=== PATIENT | female | born 1930 | race Caucasian/White ===

== ENCOUNTER 2017-08-18 17:15 | Inpatient (IN) ==
--- NOTE | 2017-08-18 21:47 | Internal Med History&Physical ---
Assessment and Plan (1) Anemia Status: Chronic Current Visit: Yes Qualifiers: Anemia type: iron deficiency Iron deficiency anemia type: chronic blood loss Qualified Code(s): D50.0 - Iron deficiency anemia secondary to blood loss (chronic) (2) History of anticoagulant therapy Status: Chronic Current Visit: Yes (3) Cardiomyopathy Status: Chronic Current Visit: Yes (4) PAD (peripheral artery disease) Status: Chronic Current Visit: No (5) Paroxysmal a-fib Status: Chronic Current Visit: No History of Present Illness Chief complaint: worsening fatigue and shortness of breath History of present illness: Ms. Singh is a 87 year old female with history of cardiomyopathy, paroxysmal atrial fibrillation, pacemaker placement, atherosclerotic disease to include carotid disease and peripheral arterial disease, COPD, history of pneumonia, iron deficiency anemia, Eliquis therapy, OA, who presented to clinic today fatigued. CBC revealed significant anemia with HH of 7.9 and 25. A few weeks ago, hemoglobin was 10. She had positive heme stools. Concerned about continuing Eliquis for anticoagulation. She is here in clinic today in follow up and found to need blood transfusion, so directly admitted to hospital. Eliquis is being held. Cardiology consulted to evaluate need for future anticoagulation vs aspirin therapy. Home Medications Medication Instructions Recorded Confirmed Type Apixaban [Eliquis] 1 tablet PO BID 06/03/15 04/04/16 History FLUoxetine [PROzac] 20 mg PO DAILY 06/03/15 04/04/16 History Furosemide 40 mg PO DAILY 06/03/15 04/04/16 History Metoprolol Succinate Xl [Toprol Xl] 25 mg PO DAILY 06/03/15 04/04/16 History Pantoprazole Tab [Protonix Tab] 40 mg PO DAILY 06/03/15 04/04/16 History Potassium Chloride 20 meq PO BEDTIME 06/03/15 04/04/16 History Rosuvastatin [Crestor] 20 mg PO BEDTIME 06/03/15 04/04/16 History Cilostazol [Pletal] 50 mg PO BID 04/01/16 04/04/16 History Ferrous Sulfate Tab [Feosol 325 mg PO DAILY 04/01/16 04/04/16 History Original Tab] Folic Acid Tab 1 mg PO DAILY 04/01/16 04/04/16 History Meclizine HCl 25 mg PO TID 04/01/16 04/04/16 History amLODIPine [Norvasc] 5 mg PO DAILY 04/01/16 04/04/16 History Fenofibrate [Tricor] 145 mg PO DAILY 04/04/16 04/04/16 History HYDROcodone/ACETAMIN 7.5-325 1 - 2 tablet PO Q4H PRN #60 tablet 04/04/16 Rx [[place] 7.5-325] Cholecalciferol [Vitamin D3] 5,000 unit PO DAILY PRN #0 tablet 04/16/16 Rx Fenofibrate [Tricor] 145 mg PO DAILY tablet 04/16/16 Rx QUEtiapine [SEROquel] 12.5 mg PO 1800 tablet 04/16/16 Rx Allergies Allergy/AdvReac Type Severity Reaction Status Date / Time Phenelzine [From [place]] Allergy NUMBNESS Verified 06/03/15 18:29 Medical,Surgical,& Family Hx - Medical History Cardio: History of: Cardiac Dysrhythmia (a fib), Hypertension, Pacemaker ( placed 7 years ago), PVD, Cardiovascular Problems (nonischemic cardiomyopathy EF 40%) Psychological: History of: Depression Neurology: History of: Vertigo HEENT: History of: HEENT Problems (allergic rhinitis/URI) Endocrine: History of: Dyslipidemia, Thyroid Disorder Respiratory: History of: Bronchitis, COPD Musculoskeletal: History of: Musculoskeletal Problems (history of hip fracture left; osteoarthritis) Hematology: History of: Clotting Problems (hx of blood clots in [place] legs) Reproductive: Comment Only: Ovarian Cysts (ovarian mass) - Surgical History Cardiac Surgeries: Sugical HX of: Carotid Endarterectomy HEENT Surgeries: Surgical HX of: Carotid Endarterectomy Abdominal Surgeries: Surgical HX of: Hernia Repair (inguinal hernia) - Family History Family History: Reports;: Family Hypertension (mother) Denies;: Family Anesthesia Reaction, Family Cancer, Family Diabetes, Family Heart Disease, Family Psychiatric Problems, Family Stroke - Social History Smoking Status: Never smoker Frequency of Alcohol Use: None Type of Drug Use: None Marital Status: Lives With:: Alone (has a daily sitter) Functional capacity: wheelchair bound - Constitutional Constitutional: Present: fatigue, malaise, weakness - Cardiovascular Cardiovascular: Present: dyspnea on exertion. Absent: chest pain at rest, chest pain with activity - Respiratory Respiratory: Present: dyspnea on exertion - Gastrointestinal Gastrointestinal: Absent: nausea, vomiting - Musculoskeletal Musculoskeletal: Absent: arthralgias (denies pain at this time) - Psychiatric Psychiatric: Absent: anxiety Exam - Constitutional Vitals: Period Temp Pulse Resp BP Sys/Gayle Pulse Ox Last 24 Hr 97.8 F 107 20 125/53 95 General appearance: no acute distress - Head Head exam: Present: normocephalic - Eye Eye exam: Present: EOMI - Respiratory Respiratory exam: Present: clear to auscultation bilaterally. Absent: rhonchi, wheezes - Cardiovascular Cardiovascular exam: Present: regular rate and rhythm, systolic murmur - GI/Abdominal GI/Abdominal exam: Absent: tenderness, soft - Extremities Exam Extremities exam: Absent: edema - Neurological Exam Neurological exam: Present: alert, oriented X3 - Psychiatric Psychiatric exam: Present: normal mood - Skin Skin exam: Present: warm, dry
[2017-08-18 22:00] LABS: Alanine Aminotransferase 13 U/L (13-56); Albumin 3.1 G/DL (3.4-5.0); Alkaline Phosphatase 49 U/L (45-117); Aspartate Amino Transferase 24 U/L (0-37); Bilirubin,Total < 0.39 MG/DL (0.2-1.0); Blood Urea Nitrogen 19 MG/DL (7-18); Calcium 8.7 MG/DL (8.5-10.1); Glucose 113 MG/DL (74-106); Iron 14 UG/DL (50-170); Magnesium 2.4 MG/DL (1.8-2.4); Osmolality,Calculated 279.5 MOS/KG (273-304); Potassium 3.6 MMOL/L (3.5-5.1); Sodium 139 MMOL/L (136-145)
[2017-08-18] MEDS ORDERED: ONDANSETRON 4 MG/2 ML VIAL IV PRN (22:16)
[2017-08-18] MEDS ORDERED: MAGNESIUM HYDROXIDE SUSP 30 ML UDCUP PO PRN (22:16)
[2017-08-18] MEDS ORDERED: ACETAMINOPHEN 325 MG TABLET PO PRN (22:16)
[2017-08-18] MEDS ORDERED: SODIUM CHLORIDE 0.9% 250 ML IV PRN (22:27)
[2017-08-18] MEDS ORDERED: SKIN HEALING OINT (AQUAPHOR) 50 GM TUBE TOP PRN (22:37)
[2017-08-18] MEDS ORDERED: POLYVINYL ALCOHOL 1.4% OPH SOLN 15 ML BOTTLE BOTH EYES PRN (22:38)
[2017-08-18 22:44] LABS: Basophils # 0.1 10*3/uL (0.0-0.2); Basophils % 0.9 % (0.0-0.8); Eosinophils # 0.2 10*3/uL (0.0-0.87); Hematocrit 22.1 VOL% (35.7-47.0); Hemoglobin 6.9 GM/DL (12.0-16.0); Immature Granulocytes % 0.2 %; Immature Granulocytes Absolute 0.01 #; Lymphocytes # 1.5 10*3/uL (1.4-4.0); Lymphocytes % 26.7 % (21.3-54.2); Mean Corpuscular HGB Conc 31.2 GM/DL (32-36); Mean Corpuscular Hemoglobin 29 PG (27-34); Mean Corpuscular Volume 93.2 FL (87-102); Mean Platelet Volume 11.8 FL (9.6-12.0); Monocytes # 0.7 10*3/uL (0.11-0.8); Neutrophils # 3.2 10*3/uL (1.4-7.4); Neutrophils % 56.2 % (38.7-73.9); Platelet Count 206 T/CUMM (130-400); Red Blood Count 2.37 MC/CUMM (3.8-5.5); Red Cell Distribution Width 13.3 % (9.3-17.3); White Blood Count 5.7 T/CUMM (4-12)
[2017-08-18] MEDS: SODIUM CHLORIDE 0.45% 1,000 ML IV SCH (23:00)
[2017-08-18 23:37] LABS: Ferritin 12.3 ng/ml (8-252)
[2017-08-18] MEDS: METOPROLOL SUCCINATE XL 25 MG TABLET PO SCH (23:50)
[2017-08-19] MEDS: ALBUTEROL/IPRATROPIUM 3 ML NEB RESP TX SCH ×4 (00:56→19:16)
[2017-08-19 06:31] LABS: Apearance,Urine Slightly Hazy (Clear); Bacteria,Urine Occasional /HPF (Few); Bilirubin,Urine Negative (Negative); Blood, Urine Negative (Negative); Glucose,Urine (UA) Negative (Negative); Hyaline Casts,Urine 2 /LPF (0-3); Ketones,Urine Negative (Negative); Mucus,Urine Occasional /LPF (Occasional); Nitrite,Urine Negative (Negative); Protein,Urine Negative; RBC,Urine 2 /HPF (0-4); Squamous Epithelial Cell,Urine Occasional /HPF (0-10); Urine Color Yellow (Yellow); Urine Specific Gravity 1.013 (1.001-1.035); Urine Urobilinogen < 2.0 EU/DL (0.2-1.0); WBC,Urine 1 /HPF (0-6)
--- NOTE | 2017-08-19 06:44 | XRay Report ---
XR chest 2V Indication: Shortness of breath Comparison: 12 September 2016 Findings: The heart and mediastinum are normal in size and configuration. Pacemaker device is unchanged in position. The pulmonary vascularity is normal in caliber. Lung volumes are increased with prominent bronchial markings. No lung infiltrates, effusions, pneumothorax or other abnormality is demonstrated. Impression: Chronic lung changes. No acute process or significant change. PROCEDURE INTERPRETED AT [facility] DEPARTMENT OF RADIOLOGY Final Report Signed by: Dr. Kevin Oleary
--- NOTE | 2017-08-19 07:38 | Order Completion Report ---
See report scanned to EMR
[2017-08-19 08:11] LABS: Basophils # 0.1 10*3/uL (0.0-0.2); Basophils % 1.1 % (0.0-0.8); Eosinophils # 0.2 10*3/uL (0.0-0.87); Eosinophils % 4.4 % (0.00-10.9); Hematocrit 27.7 VOL% (35.7-47.0); Immature Granulocytes % 0.2 %; Immature Granulocytes Absolute 0.01 #; Lymphocytes # 1.8 10*3/uL (1.4-4.0); Lymphocytes % 33.9 % (21.3-54.2); Mean Corpuscular HGB Conc 32.9 GM/DL (32-36); Mean Corpuscular Hemoglobin 29 PG (27-34); Mean Corpuscular Volume 87.1 FL (87-102); Mean Platelet Volume 11.5 FL (9.6-12.0); Monocytes # 0.6 10*3/uL (0.11-0.8); Monocytes % 12.2 % (1.7-12.7); Neutrophils # 2.5 10*3/uL (1.4-7.4); Neutrophils % 48.2 % (38.7-73.9); Platelet Count 168 T/CUMM (130-400); Red Cell Distribution Width 15.1 % (9.3-17.3); White Blood Count 5.3 T/CUMM (4-12)
[2017-08-19 08:21] LABS: Hemoglobin 9.1 GM/DL (12.0-16.0); Red Blood Count 3.18 MC/CUMM (3.8-5.5)
[2017-08-19 08:22] LABS: 25 Hydroxy Vitamin D Total 17.6 NG/ML
--- NOTE | 2017-08-19 08:40 | Cardiology Consult Note ---
<Mariana Linda E - Last Filed: 08/19/17 12:41> Assessment and Plan - Time spent with patient Time spent with patient: Greater than 30 minutes (1) Hypertension Status: Chronic Assessment and plan: SEE PLAN OF CARE LISTED BELOW Current Visit: Yes (2) Dyslipidemia Status: Chronic Assessment and plan: SEE PLAN OF CARE LISTED BELOW Current Visit: Yes (3) Risk for falls Status: Chronic Assessment and plan: SEE PLAN OF CARE LISTED BELOW Current Visit: Yes (4) NICM (nonischemic cardiomyopathy) Status: Chronic Assessment and plan: SEE PLAN OF CARE LISTED BELOW Current Visit: Yes (5) Advanced age Status: Chronic Assessment and plan: SEE PLAN OF CARE LISTED BELOW Current Visit: Yes (6) Atrial fibrillation Status: Chronic Assessment and plan: SEE PLAN OF CARE LISTED BELOW Current Visit: No Qualifiers: Atrial fibrillation type: chronic Qualified Code(s): I48.2 - Chronic atrial fibrillation (7) PAD (peripheral artery disease) Status: Chronic Assessment and plan: SEE PLAN OF CARE LISTED BELOW Current Visit: No (8) Anemia Status: Acute Assessment and plan: SEE PLAN OF CARE LISTED BELOW Current Visit: Yes Qualifiers: Anemia type: iron deficiency Iron deficiency anemia type: chronic blood loss Qualified Code(s): D50.0 - Iron deficiency anemia secondary to blood loss (chronic) (9) History of anticoagulant therapy Status: Chronic Assessment and plan: SEE PLAN OF CARE LISTED BELOW Current Visit: Yes History of Present Illness - Data of Consult Patient: known to practice within the last 3 years Consult date: 08/19/17 Requesting Physician: Cristobal Mei Primary care physician: Cristobal Mei - Consult Narrative Reason for consult: Atrial fibrillation, anemia History of present illness: MECHANICAL FACILITIES TECHNICIAN: DR. STAPLES PCP: DR. CRISTOBAL MEI Ms. Singh, [id number], has risk factors significant for: advanced age, hypertension, dyslipidemia, PVD and sedentary lifestyle. History of nonischemic cardiomyopathy (EF 35%-40%), third-degree AV block now S/P PPM, COPD, chronic atrial fibrillation for which she takes low-dose Eliquis for stroke prevention. Patient presented to Dr. Hanh Mei's office for complaints of progressive fatigue. CBC revealed a significant anemia and she was directly admitted August 18, 2017. Cardiology was consulted as she has a history of paroxysmal atrial fibrillation, currently taking Eliquis. Echocardiogram February 26, 2017: EF 35-40%, mild concentric LVH, small pericardial effusion noted. Denies chest pain, heaviness, tightness. Denies shortness of breath but states over the past several months she has started tiring easily. No lightheadedness , dizziness. Patient denies vomiting of blood or passing blood in her stool. She does acknowledge several months back, there was bright red bleeding on the tissue paper when she wiped but does not recall having black and tarry stools. Patient was transfused last night and this morning hemoglobin hematocrit 9.1 27.7 respectively. Since transfusion, she feels markedly better. This point, we must continue to hold Eliquis given her severe anemia. Of course , this puts her at high risk for stroke however given the severity of her anemia , it is felt best to discontinue use of Eliquis altogether. This was discussed with the patient today. Await results stool for occult blood, anemia profile. No need to repeat echocardiogram at this time as we have an echo from February 2017 (see above). We will continue to follow her telemetry, continuing her beta -césar. Fasting lipid profile in the morning. Will further discuss with Dr. Jaffe and await additional recommendations. IMPRESSION/PLAN: 1. ANEMIA - stool for occult blood, anemia profile. Holding Eliquis. No aspirin. Suspect she will require upper and lower GI evaluation 2. CHRONIC ATRIAL FIBRILLATION - continue beta-césar. She is currently paced with underlying chronic atrial fibrillation 3. HYPERTENSION - continue beta-blockade. We will adjust medications accordingly during hospital stay as we monitor her blood pressure 4. DYSLIPIDEMIA - FLP in a.m. Lipid-lowering agent starting this evening. 5. NICM - EF 35-40% (this has improved from 20%). Continue with current medication treatment. She is not in congestive heart failure 6. ADVANCED AGE - will verify fall prevention protocol is in place 7. PVD - history of right carotid endarterectomy performed by Dr. Natan Ovalle several years ago. Would benefit from an aspirin however given her severe anemia we will hold. 8. S/P PPM - recent interrogation at [facility]. Found to be working appropriately CC: Cristobal Mei, DO - Home Medications and Allergies Home Medications: Home Medications Medication Instructions Recorded Confirmed Type Apixaban [Eliquis] 1 tablet PO BID 06/03/15 08/18/17 History FLUoxetine [PROzac] 20 mg PO DAILY 06/03/15 08/18/17 History Furosemide 40 mg PO DAILY 06/03/15 08/18/17 History Metoprolol Succinate Xl [Toprol Xl] 25 mg PO BEDTIME 06/03/15 08/18/17 History Pantoprazole Tab [Protonix Tab] 40 mg PO DAILY 06/03/15 08/18/17 History Potassium Chloride 20 meq PO QOTHER DAY 06/03/15 08/19/17 History Rosuvastatin [Crestor] 20 mg PO BEDTIME 06/03/15 08/18/17 History Folic Acid Tab 1 mg PO DAILY 04/01/16 08/18/17 History Fenofibrate [Tricor] 145 mg PO DAILY tablet 04/16/16 08/18/17 Rx Allergies/Adverse Reactions: Allergies Allergy/AdvReac Type Severity Reaction Status Date / Time Phenelzine [From Nardil] Allergy NUMBNESS Verified 06/03/15 18:29 Review of systems: REVIEW OF SYSTEMS: See HPI - Constitutional Constitutional: Present: Fatigue. Absent: syncope, anorexia, night sweats - EENT Eyes: Absent: blurry vision, loss of vision, diplopia Ears: Absent: decreased hearing, ear pain, ear discharge - Cardiovascular Cardiovascular: Denies: chest pain with exertion, dyspnea on exertion, edema, palpitations. Absent: chest pain with deep breath, claudication - Respiratory Respiratory: Denies WORLEY, cough. Absent: wheezing, hemoptysis, change in phlegm color - Gastrointestinal Gastrointestinal: Denies: constipation. Absent: abdominal pain, hematemesis, hematochezia, melena, change in bowel habits, nausea - Genitourinary Genitourinary: Absent: difficulty urinating, dysuria, urinary hesitancy, flank pain - Musculoskeletal Musculoskeletal: Present: back pain Absent: joint swelling, muscle cramps, muscle weakness - Neurological Neurological: Present: Poor gait without frequent falls. Absent: dizziness, hemiparesis - Psychiatric Psychiatric: Absent: anxiety, depression, difficulty concentrating - Endocrine Endocrine: Absent: cold intolerance, heat intolerance, polyuria, polyphagia, polydipsia - Hematologic/Lymphatic Hematologic/Lymphatic: Present: easy bruising. Absent: easy bleeding -Integumentary Integumentary: Absent: lesions, rashes, skin breakdown Medical,Surgical,& Family Hx - Medical History Cardio: History of: Cardiac Dysrhythmia (a fib), Hypertension, Pacemaker ( placed 7 years ago), PVD, Cardiovascular Problems (nonischemic cardiomyopathy EF 40%) No history of: CAD Psychological: History of: Depression Neurology: History of: Vertigo HEENT: History of: HEENT Problems (allergic rhinitis/URI) Endocrine: History of: Dyslipidemia, Thyroid Disorder Respiratory: History of: Bronchitis, COPD Musculoskeletal: History of: Musculoskeletal Problems (history of hip fracture left; osteoarthritis) Hematology: History of: Clotting Problems (hx of blood clots in [place] legs) Reproductive: Comment Only: Ovarian Cysts (ovarian mass) - Surgical History Cardiac Surgeries: Sugical HX of: Carotid Endarterectomy HEENT Surgeries: Surgical HX of: Carotid Endarterectomy Abdominal Surgeries: Surgical HX of: Hernia Repair (inguinal hernia) - Family History Family History: Reports;: Family Hypertension (mother) Denies;: Family Anesthesia Reaction, Family Cancer, Family Diabetes, Family Heart Disease, Family Psychiatric Problems, Family Stroke - Social History Smoking Status: Never smoker Have you smoked in the last 12 months: No Frequency of Alcohol Use: None Type of Drug Use: None Physical Examination Vital Signs Temp Pulse Resp BP Pulse Ox 97.8 F 107 H 20 125/53 95 08/18/17 20:37 08/18/17 20:37 08/18/17 20:37 08/18/17 20:37 08/18/17 20:37 Exam: General: [Thin female in no apparent distress. Hard of hearing. Pleasant and cooperative. ] [Appears comfortable.] HEENT: [PERRL, normocephalic, atraumatic. Mucous membranes moist. No jaundice noted. Conjunctiva moist and clear, sclerae anicteric] Neck: No JVD/HJR, no thyromegaly or lymphadenopathy noted. No carotid bruit appreciated. Well-healed right CEA scar noted Cardiac: [Regular rate and rhythm.] [No obvious murmur rub or gallop.] Lungs: [Clear to auscultation without accessory muscle use to assist the respiratory pattern.] Oxygen in use via nasal cannula Abdomen: Soft, bowel sounds normoactive. Nontender and nondistended. No abdominal bruit or thrill noted. No masses noted. Musculoskeletal: No fluid collection. Decreased range of motion is noted. Extremities: No clubbing, cyanosis noted. [ No edema noted.] Upper extremity pulses 2+. Lower extremity pulses 2+. Capillary refill less than 3 seconds. Skin: No unusual lesions or rashes. No skin breakdown appreciated. Neuro: Awake, alert and oriented 3. Moves all extremities well without hemiparesis or paralysis. No essential tremor is appreciated. Result/EKG - Labs CBC & BMP: 08/19/17 06:52 08/19/17 10:23 Lab Results: I have reviewed the past 24 hour labs Labs: Laboratory Results - last 24 hr 08/18/17 08/18/17 08/18/17 21:20 21:20 21:20 WBC 5.7 D RBC 2.37 L Hgb 6.9 L Hct 22.1 L MCV 93.2 MCH 29 MCHC 31.2 L RDW 13.3 Plt Count 206 D MPV 11.8 Neut % (Auto) 56.2 Lymph % (Auto) 26.7 [place] % (Auto) 13.0 H Eos % (Auto) 3.0 Baso % (Auto) 0.9 H Neut # (Auto) 3.2 Lymph # (Auto) 1.5 [place] # (Auto) 0.7 Eos # (Auto) 0.2 Baso # (Auto) 0.1 Immature Gran % 0.2 Nucleated RBC % 0.0 Immature Gran # 0.01 Nucleated RBCs # 0.00 Immature Plt Fraction 0.0 Absolute Retic 0.0 Percent Retic 1.7 H Retic Hgb Equivalent 20.3 L Sodium Potassium Chloride Carbon Dioxide Anion Gap BUN Creatinine GFR Calculation BUN/Creatinine Ratio Glucose Calculated Osmolality Calcium Magnesium Iron TIBC % Saturation Ferritin Total Bilirubin AST ALT Alkaline Phosphatase B-Natriuretic Peptide 389 H Total Protein Albumin Globulin Albumin/Globulin Ratio Urine Color Urine Appearance Urine pH Ur Specific [place] Urine Protein Urine Glucose (UA) Urine Ketones Urine Blood Urine Nitrate Urine Bilirubin Urine Urobilinogen Urine Leukocytes Urine RBC Urine WBC Ur Squamous Epith Cells Urine Bacteria Hyaline Casts Urine Mucus Ur Culture Indicated? Blood Type Antibody Screen Crossmatch Blood Bank Comment 08/18/17 08/18/17 08/18/17 21:21 21:21 21:21 WBC RBC Hgb Hct MCV MCH MCHC RDW Plt Count MPV Neut % (Auto) Lymph % (Auto) [place] % (Auto) Eos % (Auto) Baso % (Auto) Neut # (Auto) Lymph # (Auto) [place] # (Auto) Eos # (Auto) Baso # (Auto) Immature Gran % Nucleated RBC % Immature Gran # Nucleated RBCs # Immature Plt Fraction Absolute Retic Percent Retic Retic Hgb Equivalent Sodium 139 Potassium 3.6 Chloride 105 Carbon Dioxide 27 Anion Gap 10.6 BUN 19 H Creatinine 1.50 H GFR Calculation 29 BUN/Creatinine Ratio 12.00 Glucose 113 H Calculated Osmolality 279.5 Calcium 8.7 Magnesium 2.4 Iron 14 L 15 L TIBC % Saturation Ferritin 12.3 Total Bilirubin < 0.39 AST 24 ALT 13 Alkaline Phosphatase 49 B-Natriuretic Peptide Total Protein 6.0 L Albumin 3.1 L Globulin 2.9 Albumin/Globulin Ratio 1.0 L Urine Color Urine Appearance Urine pH Ur Specific [place] Urine Protein Urine Glucose (UA) Urine Ketones Urine Blood Urine Nitrate Urine Bilirubin Urine Urobilinogen Urine Leukocytes Urine RBC Urine WBC Ur Squamous Epith Cells Urine Bacteria Hyaline Casts Urine Mucus Ur Culture Indicated? Blood Type A POSITIVE Antibody Screen Negative Crossmatch Blood Bank Comment 08/18/17 08/18/17 08/18/17 21:21 22:00 22:57 WBC RBC Hgb Hct MCV MCH MCHC RDW Plt Count MPV Neut % (Auto) Lymph % (Auto) [place] % (Auto) Eos % (Auto) Baso % (Auto) Neut # (Auto) Lymph # (Auto) [place] # (Auto) Eos # (Auto) Baso # (Auto) Immature Gran % Nucleated RBC % Immature Gran # Nucleated RBCs # Immature Plt Fraction Absolute Retic Percent Retic Retic Hgb Equivalent Sodium Potassium Chloride Carbon Dioxide Anion Gap BUN Creatinine GFR Calculation BUN/Creatinine Ratio Glucose Calculated Osmolality Calcium Magnesium Iron 14 L TIBC 468 H % Saturation 3.0 L Ferritin Total Bilirubin AST ALT Alkaline Phosphatase B-Natriuretic Peptide Total Protein Albumin Globulin Albumin/Globulin Ratio Urine Color Urine Appearance Urine pH Ur Specific [place] Urine Protein Urine Glucose (UA) Urine Ketones Urine Blood Urine Nitrate Urine Bilirubin Urine Urobilinogen Urine Leukocytes Urine RBC Urine WBC Ur Squamous Epith Cells Urine Bacteria Hyaline Casts Urine Mucus Ur Culture Indicated? Blood Type Cancelled A POSITIVE Antibody Screen Cancelled Crossmatch See Detail Blood Bank Comment Cancelled 08/19/17 08/19/17 00:04 06:52 WBC 5.3 RBC 3.18 L D Hgb 9.1 L D Hct 27.7 L MCV 87.1 MCH 29 MCHC 32.9 RDW 15.1 Plt Count 168 MPV 11.5 Neut % (Auto) 48.2 Lymph % (Auto) 33.9 [place] % (Auto) 12.2 Eos % (Auto) 4.4 Baso % (Auto) 1.1 H Neut # (Auto) 2.5 Lymph # (Auto) 1.8 [place] # (Auto) 0.6 Eos # (Auto) 0.2 Baso # (Auto) 0.1 Immature Gran % 0.2 Nucleated RBC % 0.0 Immature Gran # 0.01 Nucleated RBCs # 0.00 Immature Plt Fraction 0.0 Absolute Retic Percent Retic Retic Hgb Equivalent Sodium Potassium Chloride Carbon Dioxide Anion Gap BUN Creatinine GFR Calculation BUN/Creatinine Ratio Glucose Calculated Osmolality Calcium Magnesium Iron TIBC % Saturation Ferritin Total Bilirubin AST ALT Alkaline Phosphatase B-Natriuretic Peptide Total Protein Albumin Globulin Albumin/Globulin Ratio Urine Color Yellow Urine Appearance Slightly hazy Urine pH 5.0 Ur Specific [place] 1.013 Urine Protein Negative Urine Glucose (UA) Negative Urine Ketones Negative Urine Blood Negative Urine Nitrate Negative Urine Bilirubin Negative Urine Urobilinogen < 2.0 H Urine Leukocytes Trace Urine RBC 2 Urine WBC 1 Ur Squamous Epith Cells Occasional Urine Bacteria Occasional Hyaline Casts 2 Urine Mucus Occasional Ur Culture Indicated? Not indicated Blood Type Antibody Screen Crossmatch Blood Bank Comment - Diagnostic Findings Procedure: Chest x-ray: report reviewed by me - EKG EKG results: interpreted by me EKG shows: sinus rhythm (Paced rhythm) Quality Measures - VTE Contraindication to Pharmacological VTE Prophylaxis: High Risk of Bleeding <Sulema Jaffe - Last Filed: 08/19/17 17:39> History of Present Illness - Consult Narrative History of present illness: I have personally interviewed and evaluated the patient, reviewed the chart and discussed medical decision-making with Practitioner Maddi. I have read this note and agree with her documentation here in. I discussed this case at length with Dr. Mei. She would only like to pursue upper GI endoscopy and is consulting with Dr. Loco regarding this. Clearly, with her anemia that may be related to GI bleeding she is not a candidate for anticoagulation therapy. At some point when the source of her bleeding is better elucidated and if she becomes stable in terms of her hemoglobin, she could potentially be rechallenged with antiplatelet therapy. CC: Cristobal Mei, DO Physical Examination Vital Signs Temp Pulse Resp BP Pulse Ox 97.8 F 107 H 20 125/53 95 08/18/17 20:37 08/18/17 20:37 08/18/17 20:37 08/18/17 20:37 08/18/17 20:37 Result/EKG - Labs CBC & BMP: 08/19/17 13:32 08/19/17 10:23 Labs: Laboratory Results - last 24 hr 08/18/17 08/18/17 08/18/17 21:20 21:20 21:20 WBC 5.7 D RBC 2.37 L Hgb 6.9 L Hct 22.1 L MCV 93.2 MCH 29 MCHC 31.2 L RDW 13.3 Plt Count 206 D MPV 11.8 Neut % (Auto) 56.2 Lymph % (Auto) 26.7 [place] % (Auto) 13.0 H Eos % (Auto) 3.0 Baso % (Auto) 0.9 H Neut # (Auto) 3.2 Lymph # (Auto) 1.5 [place] # (Auto) 0.7 Eos # (Auto) 0.2 Baso # (Auto) 0.1 Immature Gran % 0.2 Nucleated RBC % 0.0 Immature Gran # 0.01 Nucleated RBCs # 0.00 Immature Plt Fraction 0.0 ESR [place] Absolute Retic 0.0 Percent Retic 1.7 H Retic Hgb Equivalent 20.3 L Sodium Potassium Chloride Carbon Dioxide Anion Gap BUN Creatinine GFR Calculation BUN/Creatinine Ratio Glucose Calculated Osmolality Calcium Magnesium Iron TIBC % Saturation Ferritin Total Bilirubin AST ALT Alkaline Phosphatase B-Natriuretic Peptide 389 H Total Protein Albumin Globulin Albumin/Globulin Ratio Vitamin B12 25-OH Vitamin D Total Folate Urine Color Urine Appearance Urine pH Ur Specific [place] Urine Protein Urine Glucose (UA) Urine Ketones Urine Blood Urine Nitrate Urine Bilirubin Urine Urobilinogen Urine Leukocytes Urine RBC Urine WBC Ur Squamous Epith Cells Urine Bacteria Hyaline Casts Urine Mucus Ur Culture Indicated? Blood Type Antibody Screen YANE (IgG-AHG) YANE, Polyspecific Crossmatch Blood Bank Comment 08/18/17 08/18/17 08/18/17 21:21 21:21 21:21 WBC RBC Hgb Hct MCV MCH MCHC RDW Plt Count MPV Neut % (Auto) Lymph % (Auto) [place] % (Auto) Eos % (Auto) Baso % (Auto) Neut # (Auto) Lymph # (Auto) [place] # (Auto) Eos # (Auto) Baso # (Auto) Immature Gran % Nucleated RBC % Immature Gran # Nucleated RBCs # Immature Plt Fraction ESR [place] Absolute Retic Percent Retic Retic Hgb Equivalent Sodium 139 Potassium 3.6 Chloride 105 Carbon Dioxide 27 Anion Gap 10.6 BUN 19 H Creatinine 1.50 H GFR Calculation 29 BUN/Creatinine Ratio 12.00 Glucose 113 H Calculated Osmolality 279.5 Calcium 8.7 Magnesium 2.4 Iron 14 L 15 L TIBC % Saturation Ferritin 12.3 Total Bilirubin < 0.39 AST 24 ALT 13 Alkaline Phosphatase 49 B-Natriuretic Peptide Total Protein 6.0 L Albumin 3.1 L Globulin 2.9 Albumin/Globulin Ratio 1.0 L Vitamin B12 25-OH Vitamin D Total Folate Urine Color Urine Appearance Urine pH Ur Specific [place] Urine Protein Urine Glucose (UA) Urine Ketones Urine Blood Urine Nitrate Urine Bilirubin Urine Urobilinogen Urine Leukocytes Urine RBC Urine WBC Ur Squamous Epith Cells Urine Bacteria Hyaline Casts Urine Mucus Ur Culture Indicated? Blood Type A POSITIVE Antibody Screen Negative YANE (IgG-AHG) YANE, Polyspecific Crossmatch Blood Bank Comment 08/18/17 08/18/17 08/18/17 21:21 22:00 22:57 WBC RBC Hgb Hct MCV MCH MCHC RDW Plt Count MPV Neut % (Auto) Lymph % (Auto) [place] % (Auto) Eos % (Auto) Baso % (Auto) Neut # (Auto) Lymph # (Auto) [place] # (Auto) Eos # (Auto) Baso # (Auto) Immature Gran % Nucleated RBC % Immature Gran # Nucleated RBCs # Immature Plt Fraction ESR [place] Absolute Retic Percent Retic Retic Hgb Equivalent Sodium Potassium Chloride Carbon Dioxide Anion Gap BUN Creatinine GFR Calculation BUN/Creatinine Ratio Glucose Calculated Osmolality Calcium Magnesium Iron 14 L TIBC 468 H % Saturation 3.0 L Ferritin Total Bilirubin AST ALT Alkaline Phosphatase B-Natriuretic Peptide Total Protein Albumin Globulin Albumin/Globulin Ratio Vitamin B12 25-OH Vitamin D Total Folate Urine Color Urine Appearance Urine pH Ur Specific [place] Urine Protein Urine Glucose (UA) Urine Ketones Urine Blood Urine Nitrate Urine Bilirubin Urine Urobilinogen Urine Leukocytes Urine RBC Urine WBC Ur Squamous Epith Cells Urine Bacteria Hyaline Casts Urine Mucus Ur Culture Indicated? Blood Type Cancelled A POSITIVE Antibody Screen Cancelled YANE (IgG-AHG) YANE, Polyspecific Crossmatch See Detail Blood Bank Comment Cancelled 08/19/17 08/19/17 08/19/17 00:04 06:52 06:52 WBC 5.3 RBC 3.18 L D Hgb 9.1 L D Hct 27.7 L MCV 87.1 MCH 29 MCHC 32.9 RDW 15.1 Plt Count 168 MPV 11.5 Neut % (Auto) 48.2 Lymph % (Auto) 33.9 [place] % (Auto) 12.2 Eos % (Auto) 4.4 Baso % (Auto) 1.1 H Neut # (Auto) 2.5 Lymph # (Auto) 1.8 [place] # (Auto) 0.6 Eos # (Auto) 0.2 Baso # (Auto) 0.1 Immature Gran % 0.2 Nucleated RBC % 0.0 Immature Gran # 0.01 Nucleated RBCs # 0.00 Immature Plt Fraction 0.0 ESR [place] Absolute Retic Percent Retic Retic Hgb Equivalent Sodium Potassium Chloride Carbon Dioxide Anion Gap BUN Creatinine GFR Calculation BUN/Creatinine Ratio Glucose Calculated Osmolality Calcium Magnesium Iron TIBC % Saturation Ferritin Total Bilirubin AST ALT Alkaline Phosphatase B-Natriuretic Peptide Total Protein Albumin Globulin Albumin/Globulin Ratio Vitamin B12 428 25-OH Vitamin D Total 17.6 Folate Urine Color Yellow Urine Appearance Slightly hazy Urine pH 5.0 Ur Specific [place] 1.013 Urine Protein Negative Urine Glucose (UA) Negative Urine Ketones Negative Urine Blood Negative Urine Nitrate Negative Urine Bilirubin Negative Urine Urobilinogen < 2.0 H Urine Leukocytes Trace Urine RBC 2 Urine WBC 1 Ur Squamous Epith Cells Occasional Urine Bacteria Occasional Hyaline Casts 2 Urine Mucus Occasional Ur Culture Indicated? Not indicated Blood Type Antibody Screen YANE (IgG-AHG) YANE, Polyspecific Crossmatch Blood Bank Comment 08/19/17 08/19/17 08/19/17 10:23 13:32 13:32 WBC 5.4 RBC 3.18 L Hgb 9.2 L Hct 28.3 L MCV 89.0 MCH 29 MCHC 32.5 RDW 15.8 Plt Count 173 MPV 11.3 Neut % (Auto) 56.3 Lymph % (Auto) 29.9 [place] % (Auto) 9.7 Eos % (Auto) 2.8 Baso % (Auto) 1.1 H Neut # (Auto) 3.0 Lymph # (Auto) 1.6 [place] # (Auto) 0.5 Eos # (Auto) 0.2 Baso # (Auto) 0.1 Immature Gran % 0.2 Nucleated RBC % 0.0 Immature Gran # 0.01 Nucleated RBCs # 0.00 Immature Plt Fraction 0.0 ESR [place] 48 H Absolute Retic 0.0 Percent Retic 1.3 Retic Hgb Equivalent 21.0 L Sodium 141 Potassium 3.6 Chloride 106 Carbon Dioxide 28 Anion Gap 10.6 BUN 18 Creatinine 1.40 H GFR Calculation 32 BUN/Creatinine Ratio 12.00 Glucose 97 Calculated Osmolality 282.3 Calcium 8.5 Magnesium 2.2 Iron TIBC % Saturation Ferritin 13.9 Total Bilirubin AST ALT Alkaline Phosphatase B-Natriuretic Peptide Total Protein Albumin Globulin Albumin/Globulin Ratio Vitamin B12 25-OH Vitamin D Total Folate Urine Color Urine Appearance Urine pH Ur Specific [place] Urine Protein Urine Glucose (UA) Urine Ketones Urine Blood Urine Nitrate Urine Bilirubin Urine Urobilinogen Urine Leukocytes Urine RBC Urine WBC Ur Squamous Epith Cells Urine Bacteria Hyaline Casts Urine Mucus Ur Culture Indicated? Blood Type Antibody Screen YANE (IgG-AHG) YANE, Polyspecific Crossmatch Blood Bank Comment 08/19/17 08/19/17 13:32 13:32 WBC RBC Hgb Hct MCV MCH MCHC RDW Plt Count MPV Neut % (Auto) Lymph % (Auto) [place] % (Auto) Eos % (Auto) Baso % (Auto) Neut # (Auto) Lymph # (Auto) [place] # (Auto) Eos # (Auto) Baso # (Auto) Immature Gran % Nucleated RBC % Immature Gran # Nucleated RBCs # Immature Plt Fraction ESR [place] Absolute Retic Percent Retic Retic Hgb Equivalent Sodium Potassium Chloride Carbon Dioxide Anion Gap BUN Creatinine GFR Calculation BUN/Creatinine Ratio Glucose Calculated Osmolality Calcium Magnesium Iron TIBC % Saturation Ferritin Total Bilirubin AST ALT Alkaline Phosphatase B-Natriuretic Peptide Total Protein Albumin Globulin Albumin/Globulin Ratio Vitamin B12 406 25-OH Vitamin D Total Folate > 24.0 H Urine Color Urine Appearance Urine pH Ur Specific [place] Urine Protein Urine Glucose (UA) Urine Ketones Urine Blood Urine Nitrate Urine Bilirubin Urine Urobilinogen Urine Leukocytes Urine RBC Urine WBC Ur Squamous Epith Cells Urine Bacteria Hyaline Casts Urine Mucus Ur Culture Indicated? Blood Type Antibody Screen YANE (IgG-AHG) Negative YANE, Polyspecific Negative Crossmatch Blood Bank Comment
[2017-08-19] MEDS ORDERED: PANTOPRAZOLE 40 MG TABLET PO SCH (09:00)
[2017-08-19] MEDS: FLUoxetine 20 MG CAPSULE PO SCH (09:47)
[2017-08-19] MEDS: POTASSIUM CHLORIDE 10 MEQ TABLET PO SCH (09:47)
[2017-08-19] MEDS: PANTOPRAZOLE 40 MG TABLET PO SCH (09:47)
[2017-08-19] MEDS: FUROSEMIDE 40 MG TABLET PO SCH (09:47)
[2017-08-19] MEDS: DOCUSATE SODIUM 100 MG CAPSULE PO SCH ×2 (09:47→20:39)
[2017-08-19] MEDS: FLUTICASONE 50 MCG NASAL SPRAY 16 GM BOTTLE BOTH NARES SCH (09:48)
[2017-08-19 11:07] LABS: Calcium 8.5 MG/DL (8.5-10.1); Magnesium 2.2 MG/DL (1.8-2.4); Osmolality,Calculated 282.3 MOS/KG (273-304); Potassium 3.6 MMOL/L (3.5-5.1)
[2017-08-19 14:09] LABS: Basophils # 0.1 10*3/uL (0.0-0.2); Basophils % 1.1 % (0.0-0.8); Eosinophils # 0.2 10*3/uL (0.0-0.87); Eosinophils % 2.8 % (0.00-10.9); Hematocrit 28.3 VOL% (35.7-47.0); Hemoglobin 9.2 GM/DL (12.0-16.0); Immature Granulocytes % 0.2 %; Immature Granulocytes Absolute 0.01 #; Lymphocytes # 1.6 10*3/uL (1.4-4.0); Lymphocytes % 29.9 % (21.3-54.2); Mean Corpuscular HGB Conc 32.5 GM/DL (32-36); Mean Corpuscular Hemoglobin 29 PG (27-34); Mean Platelet Volume 11.3 FL (9.6-12.0); Monocytes # 0.5 10*3/uL (0.11-0.8); Monocytes % 9.7 % (1.7-12.7); Neutrophils % 56.3 % (38.7-73.9); Platelet Count 173 T/CUMM (130-400); Red Blood Count 3.18 MC/CUMM (3.8-5.5); Red Cell Distribution Width 15.8 % (9.3-17.3); White Blood Count 5.4 T/CUMM (4-12)
[2017-08-19 14:50] LABS: Folate > 24.0 NG/ML (5.4-24.0); Vitamin B12 406 PG/ML (211-911)
[2017-08-19 16:25] LABS: Sedimentation Rate-Westergren 48 MM/HR (0-30)
--- NOTE | 2017-08-19 16:29 | Internal Med Progress Note ---
Assessment and Plan (1) Anemia Status: Acute Current Visit: Yes Qualifiers: Anemia type: iron deficiency Iron deficiency anemia type: chronic blood loss Qualified Code(s): D50.0 - Iron deficiency anemia secondary to blood loss (chronic) (2) History of anticoagulant therapy Status: Chronic Current Visit: Yes (3) Cardiomyopathy Status: Chronic Current Visit: Yes (4) PAD (peripheral artery disease) Status: Chronic Current Visit: No (5) Paroxysmal a-fib Status: Chronic Current Visit: No Internal Medicine - PN: Subj Interval history: Ms. Singh is a 87 year old female with history of cardiomyopathy, paroxysmal atrial fibrillation, pacemaker placement, atherosclerotic disease to include carotid disease and peripheral arterial disease, COPD, history of pneumonia, iron deficiency anemia, Eliquis therapy, OA, who presented to clinic today fatigued. CBC revealed significant anemia with HH of 7.9 and 25. A few weeks ago, hemoglobin was 10. She had positive heme stools. Concerned about continuing Eliquis for anticoagulation. She is here in clinic today in follow up and found to need blood transfusion, so directly admitted to hospital. Eliquis is being held. Cardiology consulted to evaluate need for future anticoagulation vs aspirin therapy. Today, Thursday, she is feeling better after blood transfusion. Dr. Loco consulted to further evaluate possibility of upper GI source of blood loss. Hesitant for colonoscopy because of advanced age and no milagros rectal bleed. However, she had positive Guaiac stool cards in clinic. Exam (Progress Note) - Constitutional Vitals: Period Temp Pulse Resp BP Sys/Gayle Pulse Ox Last 24 Hr 97.3 F-98.9 F 60-107 15-20 101-125/42-61 91-99 General appearance: no acute distress - Respiratory Respiratory exam: Present: clear to auscultation bilaterally - Cardiovascular Cardiovascular exam: Present: regular rate and rhythm - GI/Abdominal GI/Abdominal exam: Present: soft. Absent: tenderness - Extremities Exam Extremities exam: Absent: edema - Neurological Exam Neurological exam: Present: alert - Skin Skin exam: Present: warm, dry Results - Labs CBC & BMP: 08/19/17 13:32 08/19/17 10:23 Quality Measures - VTE Contraindication to Pharmacological VTE Prophylaxis: High Risk of Bleeding
[2017-08-19] MEDS: SODIUM CHLORIDE 0.45% 1,000 ML IV SCH ×2 (18:12→20:40)
--- NOTE | 2017-08-19 18:28 | Order Completion Report ---
See report scanned to EMR
[2017-08-19] MEDS: METOPROLOL SUCCINATE XL 25 MG TABLET PO SCH (20:39)
[2017-08-19] MEDS: ROSUVASTATIN 20 MG TABLET PO SCH (20:39)
[2017-08-20] MEDS: ALBUTEROL/IPRATROPIUM 3 ML NEB RESP TX SCH ×4 (00:16→19:28)
[2017-08-20 03:26] LABS: Basophils % 0.7 % (0.0-0.8); Eosinophils # 0.3 10*3/uL (0.0-0.87); Eosinophils % 4.7 % (0.00-10.9); Hematocrit 26.3 VOL% (35.7-47.0); Hemoglobin 8.6 GM/DL (12.0-16.0); Immature Granulocytes % 0.2 %; Immature Granulocytes Absolute 0.01 #; Lymphocytes # 1.6 10*3/uL (1.4-4.0); Lymphocytes % 30.2 % (21.3-54.2); Mean Corpuscular HGB Conc 32.7 GM/DL (32-36); Mean Corpuscular Hemoglobin 28 PG (27-34); Mean Corpuscular Volume 86.2 FL (87-102); Monocytes # 0.6 10*3/uL (0.11-0.8); Monocytes % 11.8 % (1.7-12.7); Neutrophils # 2.8 10*3/uL (1.4-7.4); Neutrophils % 52.4 % (38.7-73.9); Platelet Count 162 T/CUMM (130-400); Red Blood Count 3.05 MC/CUMM (3.8-5.5); Red Cell Distribution Width 15.8 % (9.3-17.3); White Blood Count 5.4 T/CUMM (4-12)
[2017-08-20 04:00] LABS: Calcium 8.7 MG/DL (8.5-10.1); Osmolality,Calculated 277.7 MOS/KG (273-304); Potassium 4.4 MMOL/L (3.5-5.1)
[2017-08-20 04:43] LABS: Risk Ratio 3.92
--- NOTE | 2017-08-20 08:55 | Gastrointestinal Consult Note ---
Assessment and Plan (1) Anemia Status: Acute Assessment and plan: 08/20-reports of fatigue times several weeks with findings of low H&H in clinic. Prior reported history of anemia without blood transfusion in the past. Heme positive stools noted in clinic. No prior history of endoscopy. Continue to monitor H&H. Transfuse as necessary. We discussed further possibly proceeding with EGD when patient is agreeable. Plan an addendum to followed by Dr. Loco. Current Visit: Yes Qualifiers: Anemia type: iron deficiency Iron deficiency anemia type: chronic blood loss Qualified Code(s): D50.0 - Iron deficiency anemia secondary to blood loss (chronic) History of Present Illness Chief complaint: Anemia History of present illness: Ms. Singh is a 87 year old female who was admitted to the hospital on 08/18 after being seen in clinic by Dr. Hanh Masters. Patient is a poor historian therefore information is obtained from chart review. No family is available during visit. Patient has a prior history of cardiomyopathy, atrial fibrillation on Eliquis, CAD, PAD, COPD, iron deficiency anemia and pacemaker placement. Patient presented to see Dr. Masters due to complaints of fatigue and weakness. Upon exam, patient was found to have anemia with an H&H of 7.9/ 25. She was seen a few weeks prior to that and was noted to have a hemoglobin of 10 at that time. She had heme positive stools noted as well in the clinic and therefore was referred to the hospital for admission for further workup. Patient does not recall any prior history of GI bleeding in the past. She denies seeing any melena or hematochezia. Denies any recent weight loss. Denies any epigastric pain, dyspepsia, dysphagia. She denies taking any anti- inflammatories [id number]. She has noted to be on Eliquis as well as Pletal. She takes Protonix daily and states this controls her reflux symptoms. She does not recall having any prior endoscopy in the past. She does not recall having a history of anemia or blood transfusions however this is noted on her history. Her weight is noted to be down 10 pounds since March of last year. She was transfused 2 units of packed red blood cells on yesterday and her H&H now is 8.6/26.3. Patient is currently n.p.o. this morning and discussed with her proceeding with EGD to further evaluate possible sources of her anemia/heme positive stools. Patient refuses to proceed with this at this time. Anemia profile is noted with iron 14, TIBC 468, saturation 3.0, ferritin 12.3. Eliquis is currently on hold with last known dose possibly 08/18. Home Medications Medication Instructions Recorded Confirmed Type Apixaban [Eliquis] 1 tablet PO BID 06/03/15 08/18/17 History FLUoxetine [PROzac] 20 mg PO DAILY 06/03/15 08/18/17 History Furosemide 40 mg PO DAILY 06/03/15 08/18/17 History Metoprolol Succinate Xl [Toprol Xl] 25 mg PO BEDTIME 06/03/15 08/18/17 History Pantoprazole Tab [Protonix Tab] 40 mg PO DAILY 06/03/15 08/18/17 History Potassium Chloride 20 meq PO QOTHER DAY 06/03/15 08/19/17 History Rosuvastatin [Crestor] 20 mg PO BEDTIME 06/03/15 08/18/17 History Folic Acid Tab 1 mg PO DAILY 04/01/16 08/18/17 History Fenofibrate [Tricor] 145 mg PO DAILY tablet 04/16/16 08/18/17 Rx Valsartan [Diovan] 40 mg PO DAILY 08/19/17 08/19/17 History Allergies Allergy/AdvReac Type Severity Reaction Status Date / Time Phenelzine [From Nardil] Allergy NUMBNESS Verified 06/03/15 18:29 Medical,Surgical,& Family Hx - Medical History Cardio: History of: Cardiac Dysrhythmia (a fib), Hypertension, Pacemaker ( placed 7 years ago), PVD, Cardiovascular Problems (nonischemic cardiomyopathy EF 40%) No history of: CAD Psychological: History of: Depression Neurology: History of: Vertigo HEENT: History of: HEENT Problems (allergic rhinitis/URI) Endocrine: History of: Dyslipidemia, Thyroid Disorder Respiratory: History of: Bronchitis, COPD Musculoskeletal: History of: Musculoskeletal Problems (history of hip fracture left; osteoarthritis) Hematology: History of: Clotting Problems (hx of blood clots in [place] legs) Reproductive: Comment Only: Ovarian Cysts (ovarian mass) - Surgical History Cardiac Surgeries: Sugical HX of: Carotid Endarterectomy HEENT Surgeries: Surgical HX of: Carotid Endarterectomy Abdominal Surgeries: Surgical HX of: Hernia Repair (inguinal hernia) - Family History Family History: Reports;: Family Hypertension (mother) Denies;: Family Anesthesia Reaction, Family Cancer, Family Diabetes, Family Heart Disease, Family Psychiatric Problems, Family Stroke - Social History Smoking Status: Never smoker Frequency of Alcohol Use: None Type of Drug Use: None 12 point system: reviewed and no additional remarkable complaints except as stated - Constitutional Constitutional: Present: as per HPI, fatigue - EENT Eyes: Present: as per HPI Ears: Present: as per HPI Nose, mouth and throat: Present: as per HPI - Cardiovascular Cardiovascular: Present: as per HPI - Respiratory Respiratory: Present: as per HPI - Gastrointestinal Gastrointestinal: Present: as per HPI - Genitourinary Genitourinary: Present: as per HPI - Musculoskeletal Musculoskeletal: Present: as per HPI, arthralgias - Neurological Neurological: Present: as per HPI - Psychiatric Psychiatric: Present: as per HPI - Endocrine Endocrine: Present: as per HPI - Hematologic/Lymphatic Hematologic/Lymphatic: Present: as per HPI Exam - Constitutional Vitals: Period Temp Pulse Resp BP Sys/Gayle Pulse Ox Last 24 Hr 97.8 F-98.6 F 61-69 14-19 101-125/45-64 91-99 General appearance: normal weight, no acute distress - Head Head exam: Present: normal inspection, normocephalic - Eye Eye exam: Present: other (Lids and conjunctival are unremarkable). Absent: scleral icterus - ENT ENT exam: Present: normal exam, normal oropharynx - Neck Neck exam: Present: normal inspection - Respiratory Respiratory exam: Present: clear to auscultation bilaterally. Absent: rales, rhonchi, wheezes - Cardiovascular Cardiovascular exam: Present: regular rate and rhythm. Absent: diastolic murmur , JVD, systolic murmur - GI/Abdominal GI/Abdominal exam: Present: normal bowel sounds, soft. Absent: ascites, distended, mass, organomegaly, tenderness - Extremities Exam Extremities exam: Present: normal inspection, full ROM - Back Exam Back exam: Present: normal inspection - Neurological Exam Neurological exam: Present: alert, oriented X3 - Psychiatric Psychiatric exam: Present: normal affect, normal mood - Skin Skin exam: Present: normal color, warm, dry Results - Labs CBC & BMP: 08/20/17 03:07 08/20/17 03:07 Lab Results: I have reviewed the past 24 hour labs Quality Measures - VTE Contraindication to Pharmacological VTE Prophylaxis: High Risk of Bleeding
[2017-08-20] MEDS ORDERED: CYANOCOBALAMIN 1000 MCG/1 ML VIAL IM ONE (09:00)
[2017-08-20] MEDS: DOCUSATE SODIUM 100 MG CAPSULE PO SCH ×2 (09:45→21:05)
[2017-08-20] MEDS: FUROSEMIDE 40 MG TABLET PO SCH (09:46)
[2017-08-20] MEDS: FLUoxetine 20 MG CAPSULE PO SCH (09:46)
[2017-08-20] MEDS: FLUTICASONE 50 MCG NASAL SPRAY 16 GM BOTTLE BOTH NARES SCH (09:46)
[2017-08-20] MEDS: PANTOPRAZOLE 40 MG TABLET PO SCH (09:46)
[2017-08-20] MEDS: POTASSIUM CHLORIDE 10 MEQ TABLET PO SCH (09:46)
[2017-08-20] MEDS: SODIUM CHLORIDE 0.45% 1,000 ML IV SCH (09:48)
[2017-08-20] MEDS ORDERED: ERGOCALCIFEROL 50,000 UNIT CAPSULE PO ONE (12:00)
[2017-08-20] MEDS ORDERED: IRON SUCROSE 200 MG in SODIUM CHLORIDE 0.9% 100 ML IV ONE (13:00)
--- NOTE | 2017-08-20 13:26 | Cardiology Progress Note ---
<Mariana Linda E - Last Filed: 08/20/17 13:15> Assessment and Plan - Time spent with patient Time spent with patient: Greater than 30 minutes (1) Hypertension Status: Chronic Assessment and plan: SEE PLAN OF CARE LISTED BELOW Current Visit: Yes (2) Dyslipidemia Status: Chronic Assessment and plan: SEE PLAN OF CARE LISTED BELOW Current Visit: Yes (3) Risk for falls Status: Chronic Assessment and plan: SEE PLAN OF CARE LISTED BELOW Current Visit: Yes (4) NICM (nonischemic cardiomyopathy) Status: Chronic Assessment and plan: SEE PLAN OF CARE LISTED BELOW Current Visit: Yes (5) Advanced age Status: Chronic Assessment and plan: SEE PLAN OF CARE LISTED BELOW Current Visit: Yes (6) Atrial fibrillation Status: Chronic Assessment and plan: SEE PLAN OF CARE LISTED BELOW Current Visit: No Qualifiers: Atrial fibrillation type: chronic Qualified Code(s): I48.2 - Chronic atrial fibrillation (7) PAD (peripheral artery disease) Status: Chronic Assessment and plan: SEE PLAN OF CARE LISTED BELOW Current Visit: No (8) Anemia Status: Acute Assessment and plan: SEE PLAN OF CARE LISTED BELOW Current Visit: Yes Qualifiers: Anemia type: iron deficiency Iron deficiency anemia type: chronic blood loss Qualified Code(s): D50.0 - Iron deficiency anemia secondary to blood loss (chronic) (9) History of anticoagulant therapy Status: Chronic Assessment and plan: SEE PLAN OF CARE LISTED BELOW Current Visit: Yes (10) UTI (urinary tract infection) Status: Acute Current Visit: Yes (11) Urinary tract infection Status: Acute Assessment and plan: SEE PLAN OF CARE LISTED BELOW Current Visit: No Cardiology - PN: Subj Interval history: [employer]NER: DR. STAPLES PCP: DR. CRISTOBAL MEI SUMMARY: Ms. Singh, [id number], has risk factors significant for: advanced age, hypertension, dyslipidemia, PVD and sedentary lifestyle. History of nonischemic cardiomyopathy (EF 35%-40%), third-degree AV block now S/P PPM, COPD , chronic atrial fibrillation. Admitted August 18, 2017 for symptomatic anemia to include shortness of breath and fatigue. Patient was taking Eliquis for stroke prevention and this is been discontinued since admission. She received 2 units of packed red blood cells and her anemia has improved. Echocardiogram August 19, 2017: EF 45%, grade 1 diastolic dysfunction, mild LVH. AUGUST 20, 2017: Patient is followed for chronic, stable conditions to include chronic atrial fibrillation, hypertension, PVD and dyslipidemia. She is followed for more acute conditions include symptomatic anemia while taking Eliquis. Denies chest pain, heaviness or tightness. Denies shortness of breath today, orthopnea or PND. In general, patient reports she feels well. She has had no additional bright red bleeding from the rectum. Gastroenterology has seen patient and she may possibly undergo EGD tomorrow. Dr. Loco is following. Vital signs are stable. At this point, patient will not be able to use Eliquis or any anticoagulation for stroke prevention due to the severe anemia. I discussed the relevance of this with Ms. Singh today. She verbalized understanding of this information. Urine culture reveals gram-positive cocci. Will defer treatment of this to attending. Will further discuss with Dr. Jaffe and await additional recommendations. AUGUST 20, 2017 REVIEW OF SYSTEMS: Cardiovascular: Denies chest pain, heaviness, tightness or palpitations Pulmonary: Denies shortness of breath, PND orthopnea Gastrointestinal: Denies nausea, vomiting, diarrhea, hematochezia or hematemesis IMPRESSION/PLAN: 1. ANEMIA - stool for occult blood, anemia profile. She is no longer candidate for formal anticoagulation. Eliquis and Aspirin held. 2. CHRONIC ATRIAL FIBRILLATION - continue beta-césar. She is currently paced with underlying chronic atrial fibrillation 3. HYPERTENSION - continue beta-blockade. We will adjust medications accordingly during hospital stay as we monitor her blood pressure 4. DYSLIPIDEMIA - continue lipid-lowering agent 5. NICM - EF 45% (this has improved from 20%). Continue with current medication treatment. She is not in congestive heart failure 6. ADVANCED AGE - will verify fall prevention protocol is in place 7. PVD - history of right carotid endarterectomy performed by Dr. Natan Ovalle several years ago. Would benefit from an aspirin however given her severe anemia, not a candidate. 8. S/P PPM - recent interrogation at [facility]. Found to be working appropriately 9. UTI - defer to attending Exam (Progress Note) - Constitutional Vitals: Period Temp Pulse Resp BP Sys/Gayle Pulse Ox Last 24 Hr 96.8 F-98.6 F 62-71 14-19 101-125/45-64 92-99 Exam: General: [Appears well with no apparent distress, thin.] [Pleasant and cooperative. ] [Appears comfortable.] HEENT: [PERRL, normocephalic, atraumatic. Mucous membranes moist. No jaundice noted. Conjunctiva moist and clear, sclerae anicteric] Neck: No JVD/HJR, no thyromegaly or lymphadenopathy noted. Well-healed right CEA scar Cardiac: [Regular rate and rhythm.] [No murmur, rub or gallop.] Well-healed pacemaker site left precordium Lungs: [Clear to auscultation without accessory muscle use to assist the respiratory pattern.] Oxygen in use via nasal cannula Abdomen: Soft, bowel sounds normoactive. Nontender and nondistended. No abdominal bruit or thrill noted. No masses noted. Musculoskeletal: No fluid collection. Decreased range of motion is noted. Extremities: No clubbing, cyanosis noted. [ No edema noted.] Upper extremity pulses 2+. Lower extremity pulses 2+. Capillary refill less than 3 seconds. Skin: No unusual lesions or rashes. No skin breakdown appreciated. Neuro: Awake, alert and oriented 3. Moves all extremities well without hemiparesis or paralysis. No essential tremor is appreciated. Result/EKG - Labs CBC & BMP: 08/20/17 03:07 08/20/17 03:07 Lab Results: I have reviewed the past 24 hour labs Labs: Laboratory Results - last 24 hr 08/19/17 08/19/17 08/19/17 13:32 13:32 13:32 WBC 5.4 RBC 3.18 L Hgb 9.2 L Hct 28.3 L MCV 89.0 MCH 29 MCHC 32.5 RDW 15.8 Plt Count 173 MPV 11.3 Neut % (Auto) 56.3 Lymph % (Auto) 29.9 Mineral % (Auto) 9.7 Eos % (Auto) 2.8 Baso % (Auto) 1.1 H Neut # (Auto) 3.0 Lymph # (Auto) 1.6 Mineral # (Auto) 0.5 Eos # (Auto) 0.2 Baso # (Auto) 0.1 Immature Gran % 0.2 Nucleated RBC % 0.0 Immature Gran # 0.01 Nucleated RBCs # 0.00 Immature Plt Fraction 0.0 ESR Westergren 48 H Absolute Retic 0.0 Percent Retic 1.3 Retic Hgb Equivalent 21.0 L Sodium Potassium Chloride Carbon Dioxide Anion Gap BUN Creatinine GFR Calculation BUN/Creatinine Ratio Glucose Calculated Osmolality Calcium Ferritin 13.9 Triglycerides Cholesterol LDL Cholesterol VLDL Cholesterol HDL Cholesterol Heart Disease Risk Ratio Vitamin B12 406 Folate > 24.0 H YANE (IgG-AHG) YANE, Polyspecific 08/19/17 08/20/17 08/20/17 13:32 03:07 03:07 WBC 5.4 RBC 3.05 L Hgb 8.6 L Hct 26.3 L MCV 86.2 L MCH 28 MCHC 32.7 RDW 15.8 Plt Count 162 MPV 11.0 Neut % (Auto) 52.4 Lymph % (Auto) 30.2 Mineral % (Auto) 11.8 Eos % (Auto) 4.7 Baso % (Auto) 0.7 Neut # (Auto) 2.8 Lymph # (Auto) 1.6 Mineral # (Auto) 0.6 Eos # (Auto) 0.3 Baso # (Auto) 0.0 Immature Gran % 0.2 Nucleated RBC % 0.0 Immature Gran # 0.01 Nucleated RBCs # 0.00 Immature Plt Fraction 0.0 ESR Westergren Absolute Retic Percent Retic Retic Hgb Equivalent Sodium 138 Potassium 4.4 Chloride 105 Carbon Dioxide 27 Anion Gap 10.4 BUN 21 H Creatinine 1.30 H GFR Calculation 35 BUN/Creatinine Ratio 16.00 Glucose 100 Calculated Osmolality 277.7 Calcium 8.7 Ferritin Triglycerides Cholesterol LDL Cholesterol VLDL Cholesterol HDL Cholesterol Heart Disease Risk Ratio Vitamin B12 Folate YANE (IgG-AHG) Negative YANE, Polyspecific Negative 08/20/17 03:07 WBC RBC Hgb Hct MCV MCH MCHC RDW Plt Count MPV Neut % (Auto) Lymph % (Auto) Mineral % (Auto) Eos % (Auto) Baso % (Auto) Neut # (Auto) Lymph # (Auto) Mineral # (Auto) Eos # (Auto) Baso # (Auto) Immature Gran % Nucleated RBC % Immature Gran # Nucleated RBCs # Immature Plt Fraction ESR Westergren Absolute Retic Percent Retic Retic Hgb Equivalent Sodium Potassium Chloride Carbon Dioxide Anion Gap BUN Creatinine GFR Calculation BUN/Creatinine Ratio Glucose Calculated Osmolality Calcium Ferritin Triglycerides 190 H Cholesterol 141 LDL Cholesterol 81.0 VLDL Cholesterol 38.0 HDL Cholesterol 36 L Heart Disease Risk Ratio 3.92 Vitamin B12 Folate YANE (IgG-AHG) YANE, Polyspecific - Diagnostic Findings Procedure: Ultrasound: report reviewed by me (Echocardiogram) Quality Measures - VTE Contraindication to Pharmacological VTE Prophylaxis: High Risk of Bleeding <LdSulema - Last Filed: 08/20/17 18:08> Cardiology - PN: Subj Interval history: I have personally interviewed and evaluated the patient, reviewed the chart and discussed medical decision-making with Practitioner Maddi. I have read this note and agree with her documentation here in. Anticoagulation is contraindicated given her acute anemia. She can follow-up with Dr. Staples on an outpatient basis. We will sign off, please call with further questions. Exam (Progress Note) - Constitutional Vitals: Period Temp Pulse Resp BP Sys/Gayle Pulse Ox Last 24 Hr 96.8 F-98.6 F 62-71 14-19 101-125/45-64 93-99 Result/EKG - Labs CBC & BMP: 08/20/17 03:07 08/20/17 03:07 Labs: Laboratory Results - last 24 hr 08/20/17 08/20/17 08/20/17 03:07 03:07 03:07 WBC 5.4 RBC 3.05 L Hgb 8.6 L Hct 26.3 L MCV 86.2 L MCH 28 MCHC 32.7 RDW 15.8 Plt Count 162 MPV 11.0 Neut % (Auto) 52.4 Lymph % (Auto) 30.2 Mineral % (Auto) 11.8 Eos % (Auto) 4.7 Baso % (Auto) 0.7 Neut # (Auto) 2.8 Lymph # (Auto) 1.6 Mineral # (Auto) 0.6 Eos # (Auto) 0.3 Baso # (Auto) 0.0 Immature Gran % 0.2 Nucleated RBC % 0.0 Immature Gran # 0.01 Nucleated RBCs # 0.00 Immature Plt Fraction 0.0 Sodium 138 Potassium 4.4 Chloride 105 Carbon Dioxide 27 Anion Gap 10.4 BUN 21 H Creatinine 1.30 H GFR Calculation 35 BUN/Creatinine Ratio 16.00 Glucose 100 Calculated Osmolality 277.7 Calcium 8.7 Triglycerides 190 H Cholesterol 141 LDL Cholesterol 81.0 VLDL Cholesterol 38.0 HDL Cholesterol 36 L Heart Disease Risk Ratio 3.92
--- NOTE | 2017-08-20 20:13 | Internal Med Progress Note ---
Assessment and Plan (1) Anemia Status: Acute Current Visit: Yes Qualifiers: Anemia type: iron deficiency Iron deficiency anemia type: chronic blood loss Qualified Code(s): D50.0 - Iron deficiency anemia secondary to blood loss (chronic) (2) History of anticoagulant therapy Status: Chronic Current Visit: Yes (3) Cardiomyopathy Status: Chronic Current Visit: Yes (4) PAD (peripheral artery disease) Status: Chronic Current Visit: No (5) Paroxysmal a-fib Status: Chronic Current Visit: No Internal Medicine - PN: Subj Interval history: Ms. Singh is a 87 year old female with history of cardiomyopathy, paroxysmal atrial fibrillation, pacemaker placement, atherosclerotic disease to include carotid disease and peripheral arterial disease, COPD, history of pneumonia, iron deficiency anemia, Eliquis therapy, OA, who presented to clinic today fatigued. CBC revealed significant anemia with HH of 7.9 and 25. A few weeks ago, hemoglobin was 10. She had positive heme stools. Concerned about continuing Eliquis for anticoagulation. She is here in clinic today in follow up and found to need blood transfusion, so directly admitted to hospital. Eliquis is being held. Cardiology consulted to evaluate need for future anticoagulation vs aspirin therapy. Today, Thursday, she is feeling better after blood transfusion. Dr. Loco consulted to further evaluate possibility of upper GI source of blood loss. Hesitant for colonoscopy because of advanced age and no milagros rectal bleed. However, she had positive Guaiac stool cards in clinic. Aug 20: She reports feeling better overall and wants to wait on EGD until she speaks with her grandson. Has UTI and will start Rocephin until susceptibilities are resulted. Generalized weakness. Exam (Progress Note) - Constitutional Vitals: Period Temp Pulse Resp BP Sys/Gayle Pulse Ox Last 24 Hr 96.8 F-98.6 F 62-76 14-19 109-125/45-64 93-99 General appearance: no acute distress - Respiratory Respiratory exam: Present: clear to auscultation bilaterally - Cardiovascular Cardiovascular exam: Present: regular rate and rhythm - GI/Abdominal GI/Abdominal exam: Present: soft. Absent: tenderness - Extremities Exam Extremities exam: Absent: edema - Neurological Exam Neurological exam: Present: alert - Psychiatric Psychiatric exam: Present: normal mood - Skin Skin exam: Present: warm, dry Results - Labs CBC & BMP: 08/20/17 03:07 08/20/17 03:07 Quality Measures - VTE Contraindication to Pharmacological VTE Prophylaxis: High Risk of Bleeding
[2017-08-20] MEDS: ROSUVASTATIN 20 MG TABLET PO SCH (21:05)
[2017-08-20] MEDS: METOPROLOL SUCCINATE XL 25 MG TABLET PO SCH (21:08)
[2017-08-21 03:30] LABS: Basophils # 0.1 10*3/uL (0.0-0.2); Eosinophils # 0.4 10*3/uL (0.0-0.87); Eosinophils % 6.1 % (0.00-10.9); Hematocrit 29.5 VOL% (35.7-47.0); Hemoglobin 9.5 GM/DL (12.0-16.0); Immature Granulocytes % 0.5 %; Immature Granulocytes Absolute 0.03 #; Lymphocytes # 1.6 10*3/uL (1.4-4.0); Lymphocytes % 25.5 % (21.3-54.2); Mean Corpuscular HGB Conc 32.2 GM/DL (32-36); Mean Corpuscular Hemoglobin 28 PG (27-34); Mean Corpuscular Volume 88.3 FL (87-102); Mean Platelet Volume 11.8 FL (9.6-12.0); Monocytes # 0.7 10*3/uL (0.11-0.8); Monocytes % 10.9 % (1.7-12.7); Neutrophils # 3.5 10*3/uL (1.4-7.4); Platelet Count 203 T/CUMM (130-400); Red Blood Count 3.34 MC/CUMM (3.8-5.5); Red Cell Distribution Width 15.6 % (9.3-17.3); White Blood Count 6.2 T/CUMM (4-12)
[2017-08-21 04:35] LABS: Magnesium 2.5 MG/DL (1.8-2.4); Osmolality,Calculated 278.5 MOS/KG (273-304); Potassium 4.2 MMOL/L (3.5-5.1)
[2017-08-21] MEDS: SODIUM CHLORIDE 0.45% 1,000 ML IV SCH ×3 (05:10→21:15)
[2017-08-21] MEDS: ALBUTEROL/IPRATROPIUM 3 ML NEB RESP TX SCH ×4 (07:25→18:58)
[2017-08-21] MEDS ORDERED: LIDOCAINE 100 MG/5 ML SYRINGE ONE (09:00)
[2017-08-21] MEDS ORDERED: PROPOFOL 200 MG/20 ML VIAL IV ONE (09:00)
--- NOTE | 2017-08-21 11:53 | History and Physical Update ---
History and Physical Update - History and Physical H&P was reviewed, the patient examined and there: are no changes in the patients condition since last H&P was completed. - Physical Exam Mental Status: alert and oriented Heart: regular rate and rhythm Lung: clear to auscultation Abdomen: within normal limits Vitals: within normal limits
--- NOTE | 2017-08-21 12:00 | Operative Note ---
Date of procedure: 08/21/17 Pre-op diagnosis: Blood in stool, iron deficiency anemia Procedure: Procedure: Esophagogastroduodenoscopy Brief clinical abstract: 87-year-old female was admitted with weakness and anemia with hemoglobin in the 8 range. Occult blood has been noted in her stool. She also has evidence of iron deficiency. Indication for procedure: Iron deficiency anemia, blood in stool Endoscopic findings:[After informed consent was obtained, the patient was placed in the left lateral decubitus position. The gastroscope was inserted in the upper esophagus under direct vision with no resistance encountered. Esophageal mucosa appeared normal with squamocolumnar junction sharply demarcated at the diaphragmatic indentation. The endoscope was advanced in the stomach which was carefully examined including retroflexed view of the cardia and fundus with no abnormality seen. The pyloric channel, duodenal bulb, second and third portion of the duodenum appeared normal. The endoscope was removed and patient appeared to tolerate the procedure well. Impression: Normal EGD Recommendations: Plan to discuss with patient about possible colonoscopy to further evaluate iron deficiency and blood in stool. She has never had colonoscopy in the past. Anesthesia: MAC (tiva) Surgeon / Physician: Rohan Loco Estimated blood loss: none Specimens: none sent Condition: stable Disposition: post procedure unit Results - Labs CBC & BMP: 08/21/17 01:53 08/21/17 01:53 Discharge Plan - Discharge Medications No Action Pantoprazole Tab [Protonix Tab] 40 mg PO DAILY Metoprolol Succinate Xl [Toprol Xl] 25 mg PO BEDTIME Potassium Chloride 20 meq PO QOTHER DAY Furosemide 40 mg PO DAILY FLUoxetine [PROzac] 20 mg PO DAILY Apixaban [Eliquis] 1 tablet PO BID Rosuvastatin [Crestor] 20 mg PO BEDTIME Folic Acid Tab 1 mg PO DAILY Valsartan [Diovan] 40 mg PO DAILY Fenofibrate [Tricor] 145 mg PO DAILY tablet - Follow Up or Referral - Forms/Instructions
--- NOTE | 2017-08-21 12:04 | Anesthesia Post-Op ---
Anesthesia Post OP - Post Ansesthetic Evaluation Patient seen in post op: Yes Resp: within normal limits CV: within normal limits Mental: within normal limits Temp: within normal limits [id number]: within normal limits Nausea and Vomiting: within normal limits Pain: within normal limits
[2017-08-21] MEDS: DOCUSATE SODIUM 100 MG CAPSULE PO SCH ×2 (13:43→21:10)
[2017-08-21] MEDS: PANTOPRAZOLE 40 MG TABLET PO SCH (14:49)
[2017-08-21] MEDS: FLUoxetine 20 MG CAPSULE PO SCH (14:49)
[2017-08-21] MEDS: FLUTICASONE 50 MCG NASAL SPRAY 16 GM BOTTLE BOTH NARES SCH (14:49)
[2017-08-21] MEDS: FUROSEMIDE 40 MG TABLET PO SCH (14:49)
[2017-08-21] MEDS: POTASSIUM CHLORIDE 10 MEQ TABLET PO SCH (14:49)
[2017-08-21] MEDS: ROSUVASTATIN 20 MG TABLET PO SCH (21:10)
[2017-08-21] MEDS: METOPROLOL SUCCINATE XL 25 MG TABLET PO SCH (21:10)
--- NOTE | 2017-08-21 21:11 | Internal Med Progress Note ---
Assessment and Plan (1) Anemia Status: Acute Current Visit: Yes Qualifiers: Anemia type: iron deficiency Iron deficiency anemia type: chronic blood loss Qualified Code(s): D50.0 - Iron deficiency anemia secondary to blood loss (chronic) (2) History of anticoagulant therapy Status: Chronic Current Visit: Yes (3) Cardiomyopathy Status: Chronic Current Visit: Yes (4) PAD (peripheral artery disease) Status: Chronic Current Visit: No (5) Paroxysmal a-fib Status: Chronic Current Visit: No (6) UTI (urinary tract infection) Status: Acute Current Visit: Yes Qualifiers: Hematuria presence: without hematuria Internal Medicine - PN: Subj Interval history: Ms. Singh is a 87 year old female with history of cardiomyopathy, paroxysmal atrial fibrillation, pacemaker placement, atherosclerotic disease to include carotid disease and peripheral arterial disease, COPD, history of pneumonia, iron deficiency anemia, Eliquis therapy, OA, who presented to clinic today fatigued. CBC revealed significant anemia with HH of 7.9 and 25. A few weeks ago, hemoglobin was 10. She had positive heme stools. Concerned about continuing Eliquis for anticoagulation. She is here in clinic today in follow up and found to need blood transfusion, so directly admitted to hospital. Eliquis is being held. Cardiology consulted to evaluate need for future anticoagulation vs aspirin therapy. Today, Thursday, she is feeling better after blood transfusion. Dr. Loco consulted to further evaluate possibility of upper GI source of blood loss. Hesitant for colonoscopy because of advanced age and no milagros rectal bleed. However, she had positive Guaiac stool cards in clinic. Aug 20: She reports feeling better overall and wants to wait on EGD until she speaks with her grandson. Has UTI and will start Rocephin until susceptibilities are resulted. Generalized weakness. Aug 21: She is doing better and hemoglobin reasonably stable. Will discharge to home tomorrow on Aspirin 325 mg daily. She will follow up with Dr. Robertson. Exam (Progress Note) - Constitutional Vitals: Period Temp Pulse Resp BP Sys/Gayle Pulse Ox Last 24 Hr 96.8 F-99.1 F 60-69 14-18 95-140/39-70 93-100 General appearance: no acute distress - Respiratory Respiratory exam: Present: clear to auscultation bilaterally - Cardiovascular Cardiovascular exam: Present: regular rate and rhythm - GI/Abdominal GI/Abdominal exam: Present: soft. Absent: tenderness - Extremities Exam Extremities exam: Absent: edema - Neurological Exam Neurological exam: Present: alert - Psychiatric Psychiatric exam: Present: normal mood - Skin Skin exam: Present: warm, dry Results - Labs CBC & BMP: 08/21/17 01:53 08/21/17 01:53 Quality Measures - VTE Contraindication to Pharmacological VTE Prophylaxis: High Risk of Bleeding
--- NOTE | 2017-08-22 | Discharge Summary ---
Hospital Course - Hospital Course Hospital Course: Ms. Singh is a 87 year old female with history of cardiomyopathy, paroxysmal atrial fibrillation, pacemaker placement, atherosclerotic disease to include carotid disease and peripheral arterial disease, COPD, history of pneumonia, iron deficiency anemia, Eliquis therapy, OA, who presented to clinic today fatigued. CBC revealed significant anemia with HH of 7.9 and 25. A few weeks ago, hemoglobin was 10. She had positive heme stools. She had blood transfusion and is feeling better. Will discharge to home on Aspirin 325 mg daily. After hemoglobin stabilized, she can be challenged with Plavix to have stronger coverage against atherosclerotic disease. She will follow up with Dr. Robertson in clinic to further discuss. Discontinuing Eliquis. Diagnosis - Discharge Diagnosis (1) Anemia Status: Chronic (2) History of anticoagulant therapy Status: Chronic (3) Cardiomyopathy Status: Chronic (4) PAD (peripheral artery disease) Status: Chronic (5) Paroxysmal a-fib Status: Chronic (6) UTI (urinary tract infection) Status: Acute (7) GI bleed Status: Resolved Discharge Plan - Discharge Data Disposition: Home Health Service Condition at Discharge: Stable Discharge Diet: heart healthy Activity: as per physical therapy, increase activity as tolerated - Discharge Medications New Cefuroxime Tab [Ceftin] 250 mg PO BID #20 tablet Docusate Sodium Cap [Colace Cap] 100 mg PO BID capsule Fluticasone 50 Mcg Nasal [place] [Flonase Nasal [place]] 1 spray BOTH NARES DAILY spray Potassium Chloride Cap/Tab [K Dur] 10 meq PO DAILY #30 tablet Skin Healing Oint (Aquaphor) [Aquaphor] 1 applic TOP PRN PRN applic PRN Reason: Dry Skin Polyvinyl Alcohol 1.4% Oph Isabel [Artificial Tears Oph Soln] 2 drop BOTH EYES QID PRN bottle PRN Reason: Dry Eyes Aspirin/Calcium Carbonate/Mag [Aspirin Buffered 325 mg Tab] 325 mg PO AC BREAKFAST #30 tablet Continue Pantoprazole Tab [Protonix Tab] 40 mg PO DAILY Metoprolol Succinate Xl [Toprol Xl] 25 mg PO BEDTIME Furosemide 40 mg PO DAILY FLUoxetine [PROzac] 20 mg PO DAILY Rosuvastatin [Crestor] 20 mg PO BEDTIME Fenofibrate [Tricor] 145 mg PO DAILY tablet Discontinued Potassium Chloride 20 meq PO QOTHER DAY Apixaban [Eliquis] 1 tablet PO BID Folic Acid Tab 1 mg PO DAILY Valsartan [Diovan] 40 mg PO DAILY - Follow Up or Referral Follow Up: Yolande Masters DO [Primary Care Provider] - Pancho Robertson MD [Physician] - - Forms/Instructions Additional Discharge Instructions: Follow up with Dr. Bella Masters in clinic within 1-2 weeks. Follow up with Dr. Robertson within 2 weeks in clinic to discuss GI bleed and the discontinuing of Eliquis. She can follow up with Dr. Loco as needed. Exam - Constitutional Vitals: Period Temp Pulse Resp BP Sys/Gayle Pulse Ox Last 24 Hr 96.8 F-99.1 F 60-69 14-18 95-140/39-70 90-100 General appearance: no acute distress - Respiratory Respiratory exam: Present: clear to auscultation bilaterally - Cardiovascular Cardiovascular exam: Present: regular rate and rhythm - GI/Abdominal GI/Abdominal exam: Present: soft. Absent: tenderness - Extremities Exam Extremities exam: Absent: edema - Neurological Exam Neurological exam: Present: alert - Psychiatric Psychiatric exam: Present: normal mood - Skin Skin exam: Present: warm, dry Discharge Results Procedures and tests throughout hospitalization: Pending Orders 08/19/17 13:32 Anemia Profile Routine 08/20/17 Hb Variant, A2/F Quant, B Routine 08/20/17 21:29 Blood Culture Routine 08/21/17 20:56 Occult Blood, Stool Routine 08/22/17 04:00 Basic Metabolic Panel IN AM Comp Blood Count Auto Diff IN AM Labs on day of discharge: Labs from last 24 hours 08/21/17 08/21/17 01:53 01:53 WBC 6.2 RBC 3.34 L Hgb 9.5 L Hct 29.5 L MCV 88.3 MCH 28 MCHC 32.2 RDW 15.6 Plt Count 203 D MPV 11.8 Neut % (Auto) 56.0 Lymph % (Auto) 25.5 Slope % (Auto) 10.9 Eos % (Auto) 6.1 Baso % (Auto) 1.0 H Neut # (Auto) 3.5 Lymph # (Auto) 1.6 Slope # (Auto) 0.7 Eos # (Auto) 0.4 Baso # (Auto) 0.1 Immature Gran % 0.5 Nucleated RBC % 0.0 Immature Gran # 0.03 Nucleated RBCs # 0.00 Immature Plt Fraction 0.0 Sodium 139 Potassium 4.2 Chloride 104 Carbon Dioxide 26 Anion Gap 13.2 BUN 19 H Creatinine 1.20 H GFR Calculation 39 BUN/Creatinine Ratio 15.00 Glucose 90 Calculated Osmolality 278.5 Calcium 9.0 Magnesium 2.5 H Preliminary micro results at discharge 08/20/17 21:29 Blood Culture - Preliminary Blood No growth at 1 day 08/20/17 21:29 Blood Culture - Preliminary Blood No growth at 1 day DS: Provider Date of admission: 08/18/17 17:59 Primary care physician: Yolande Masters DO Attending physician on admission: Yolande Masters DO Consults: 08/18/17 22:16 Consult to Case Mgmt/Social Srvs [CONS] Routine Reason for Case Mgmt/Social Srvs: Discharge Planning 08/18/17 22:28 Consult to Dietitian [CONS] Routine Reason for Dietitian: Diet Recommendations Consult Comment: protein requirements 08/19/17 13:01 Consult to Physician [CONS] Routine Comment: Or GI MD shampoo person. Anemia. Recent BRB Consulting Provider: Rohan Loco Person Notified: Megan Date Notified: 08/19/17 Time Notified: 16:16 Consult Notification Comment: 08/19/17 22:18 Consult to Dietitian [CONS] Routine Reason for Dietitian: Diet Recommendations Consult Comment: protein requirements Discharging clinician: Yolande Masters DO Expected date of discharge: 08/22/17
[2017-08-22] MEDS: ALBUTEROL/IPRATROPIUM 3 ML NEB RESP TX SCH ×2 (01:30→07:35)
[2017-08-22 04:31] LABS: Basophils # 0.1 10*3/uL (0.0-0.2); Eosinophils # 0.4 10*3/uL (0.0-0.87); Eosinophils % 6.4 % (0.00-10.9); Hematocrit 28.4 VOL% (35.7-47.0); Hemoglobin 9.2 GM/DL (12.0-16.0); Immature Granulocytes % 0.3 %; Immature Granulocytes Absolute 0.02 #; Lymphocytes # 1.7 10*3/uL (1.4-4.0); Lymphocytes % 27.7 % (21.3-54.2); Mean Corpuscular HGB Conc 32.4 GM/DL (32-36); Mean Corpuscular Hemoglobin 28 PG (27-34); Mean Corpuscular Volume 87.7 FL (87-102); Mean Platelet Volume 11.7 FL (9.6-12.0); Monocytes # 0.7 10*3/uL (0.11-0.8); Monocytes % 10.7 % (1.7-12.7); Neutrophils # 3.3 10*3/uL (1.4-7.4); Neutrophils % 53.9 % (38.7-73.9); Platelet Count 184 T/CUMM (130-400); Red Blood Count 3.24 MC/CUMM (3.8-5.5); Red Cell Distribution Width 15.1 % (9.3-17.3); White Blood Count 6.1 T/CUMM (4-12)
[2017-08-22 05:10] LABS: Calcium 9.2 MG/DL (8.5-10.1); Osmolality,Calculated 278.5 MOS/KG (273-304); Potassium 4.1 MMOL/L (3.5-5.1)
[2017-08-22] MEDS: SODIUM CHLORIDE 0.45% 1,000 ML IV SCH (06:01)
[2017-08-22] MEDS: POTASSIUM CHLORIDE 10 MEQ TABLET PO SCH (08:36)
[2017-08-22] MEDS: FLUoxetine 20 MG CAPSULE PO SCH (08:36)
[2017-08-22] MEDS: DOCUSATE SODIUM 100 MG CAPSULE PO SCH (08:36)
[2017-08-22] MEDS: PANTOPRAZOLE 40 MG TABLET PO SCH (08:37)
[2017-08-22] MEDS: FUROSEMIDE 40 MG TABLET PO SCH (08:37)
[2017-08-22] MEDS: FLUTICASONE 50 MCG NASAL SPRAY 16 GM BOTTLE BOTH NARES SCH (08:37)
[2017-08-22 12:12] VITALS: BP 112/57
[2017-08-22 17:36] LABS: Hb A 92.5 % (95.8-98.0); Hb A2 2.4 % (2.0-3.3); Hb F 0 % (0.0-0.9); Variant 1 5.1 Zone 2 (C Zone) % (0.0)
== END 2017-08-22 13:00 | disposition home health service (06) | DRG 812 ==
LOC: N.5E 18:34
PROVIDERS: ADMIT Internal Medicine; ATTEND Internal Medicine

== ENCOUNTER 2018-05-06 09:38 | Inpatient (IN) ==
[2018-05-21 23:22] VITALS: BP 61/34
== END 2018-05-21 23:10 | disposition expired | DRG 329 ==
LOC: EDUNIT# → EDBD → N.ED 09:38 → N.EDINP 14:46 → N.4E 16:49 → N.ICU 05-15 19:12
PROVIDERS: ADMIT Internal Medicine; ATTEND Internal Medicine
PROC: COLONBX (2018-05-10 12:05)